=== PATIENT | female | born 1990 | race Caucasian/White ===

== ENCOUNTER 2018-07-07 12:28 | Inpatient (IN) | payer BC ==
[2018-07-07] MEDS ORDERED: Lactated Ringers 1000 ML Bag* 1,000 ML IV ONE ×2 (15:37→17:15)
[2018-07-07] MEDS ORDERED: Buffered Lidocaine 1% SYRIN* 1 ML/SYRINGE INTRADERM ONE (15:37)
[2018-07-07] MEDS ORDERED: Penicillin G Potassium IV* 5,000,000 UNITS in NS 0.9% 100 ML* 100 ML IVPB ONE (15:37)
[2018-07-07] MEDS ORDERED: Lactated Ringers 1000 ML Bag* 1,000 ML IV SCH ×2 (16:00→18:00)
[2018-07-07 16:16] LABS: ABS Basophils 0 10^3/ul (0-0.2); ABS Eosinophils 0 10^3/ul (0-0.6); ABS Monocytes 0.6 10^3/ul (0-0.8); ABS Neutrophils 7.8 10^3/ul (1.5-7.7); ABS Nucleated RBC 0 10^3/ul; Eosinophil % 0.3 %; Hematocrit 36 % (35-47); Hemoglobin 12.8 g/dl (12.0-16.0); Lymphocyte % 10.9 %; Mean Corpuscular HGB Conc 35 g/dl (31-36); Mean Corpuscular Hemoglobin 34 pg (27-31); Mean Corpuscular Volume 95 fL (80-97); Mean Platelet Volume 9.3 fL (7.4-10.4); Nucleated Red Blood Cells % 0; Platelet Count 166 10^3/ul (150-450); Red Blood Count 3.81 10^6/ul (4.00-5.40); Red Cell Distribution Width 13 % (10.5-15); White Blood Count 9.4 10^3/ul (3.5-10.8)
[2018-07-07] MEDS ORDERED: OBEPIDURAL* 250 ML EPIDURAL ONE (16:45)
--- NOTE | 2018-07-07 16:58 | HP ---
General Information - General Information Maternal Age: 28 Grav: 1 Para: 0 SAB: 0 IEA: 0 Estimated Due Date: 07/09/18 Determined By: LMP Maternal Blood Type and Rh: A Positive - Results this Serology/RPR Result: Non-Reactive Rubella Result: Non-Immune HBsAg Result: Negative HIV Result: Negative GBS Culture Result: Positive Past Medical History Delivery History: See Records - primigravida Pertinent Past Medical History: Non-Contributory Pertinent Past Surgical History: None Pertinent Family History: Non-Contributory - Antepartal Records Antepartal Records: Reviewed, Complicated by: - Rubella equivocal x2 Review of Systems Constitutional: Uncomfortable CV Complaint: No Respiratory: Shortness of Breath: No Gastrointestinal: Normal Bowel Movement, Nausea Genitourinary: No Dysuria, No Bleeding, No Leaking Fluid Musculoskeletal: No Epigastric Pain, Contractions Neurological: No Headache, No Visual Changes Movement: Normal Exam Allergies/Adverse Reactions: Allergies No Known Allergies Allergy (Verified 07/07/18 13:03) T-98.2, P-70, R-20, BP-106/67, O2-98% Lab Values - Entire Visit: Laboratory Tests 07/07/18 07/07/18 15:53 15:53 WBC 9.4 RBC 3.81 L Hgb 12.8 Hct 36 MCV 95 MCH 34 H MCHC 35 RDW 13 Plt Count 166 MPV 9.3 Neut % (Auto) 82.6 Lymph % (Auto) 10.9 Rush % (Auto) 6.0 Eos % (Auto) 0.3 Baso % (Auto) 0.2 Absolute Neuts (auto) 7.8 H Absolute Lymphs (auto) 1.0 Absolute Monos (auto) 0.6 Absolute Eos (auto) 0 Absolute Basos (auto) 0 Absolute Nucleated RBC 0 Nucleated RBC % 0 Blood Type A Positive - Measurements Height: 5 ft 5 in Weight: 66.678 kg Weight in lbs: 147.932870 Body Mass Index (BMI): 24.4 Pre- Weight: 53.977 kg Weight Gained This : 28 lbs and 0 ozs - Exam Breast: Breast Exam Deferred CVA: No CVA Tenderness Extremities: No Edema Heart: Normal Rhythm/Heart Sounds HEENT: No Significant Findings Lungs: Clear Bilaterally Rectal: Rectal Exam Deferred Reflexes: DTR 2+ Thyroid: No Thyromegaly - Abdominal Exam Abdomen Exam: Non-Tender, Fundal Height Consistent with Dates - Ultrasound/Biophysical Profile Ultrasound Status: Not Done Targeted Exam Findings See L&D Outpatient Visit Provider Note for Findings: N/A Estimated Weight: 7# Cervical Exam: 3cm - 3-4 cm last check, was 2-3 cm on arrival Effacement: 60% Station: -1 Presenting Part: Vertex Membrane Status: Intact Bleeding/Discharge: Bloody Show EFM Findings - External Monitor Findings Baseline Heart Rate: 145 External Monitor Findings: Accelerations Present, No Pattern of Variable or Late Decelerations, Variability Moderate, Baseline Stable Contractions: Irregular, Mild, Moderate, 45-90 Seconds, >90 Seconds Contraction Frequency: 5-15 minutes Assessment/Plan - Assessment 28 year old at 39 5/7 weeks gestation in early labor, making cervical change, GBS positive, with no evidence of acidemia. At the time of this writing, pt's ctx frequency have increased to every 5 minutes and she is requesting an epidural. Dr. Dang at bedside, placing epidural. - Obstetrical Risk Factors Obstetrical Risk Factors: GBS Positive - Plan Plan: Antibiotic Prophylaxis, Admit - Anticipate Vaginal Delivery - Date/Time of Admission Date of Admission: 07/07/18 Time of Admission: 16:00
[2018-07-07] MEDS ORDERED: Famotidine TAB* 20 MG PO PRN (17:15)
[2018-07-07] MEDS ORDERED: Sodium Citrate/Citric Acid* 15 ML UDC PO PRN (17:15)
[2018-07-07] MEDS ORDERED: Phenylephrine IV* 40 MCG/ML 10 ML SYRINGE IV PUSH PRN ×2 (17:15)
[2018-07-07] MEDS ORDERED: EPHEDrine (Pressors)* 50 MG/ML VIAL IV PUSH PRN ×2 (17:15)
[2018-07-07] MEDS ORDERED: Oxytocin in LR* 20 UNITS/1,000 ML BAG IVPB SCH (18:00)
[2018-07-07] MEDS ORDERED: OBEPIDURAL* 250 ML EPIDURAL SCH (18:00)
--- NOTE | 2018-07-07 18:13 | PN ---
Progress Note - Progress Note Date of Service: 07/07/18 SOAP: Subjective: Pt comfortable wth epidural. Feels mild tightening with ctx. Objective: FHR 135 baseline, moderate variability, positive accels, no decels UCs 3-8 minutes Cervix: 4cm/ 70%/ 0 station/ vtx/ membranes intact Vital signs: 113/65, 70p, temp-98.2 Assessment: 28 year old at 39 5/7 weeks gestation in active labor, GBS positive receiving prophylaxis, comfortable with epidural, no evidence of acidemia. Plan: Initiate Pitocin augmentation if ctx continue to be irregular/ spaced out. Will consider AROM at some point.
[2018-07-07] MEDS: Penicillin G Potassium IV* 2,500,000 UNITS in NS 0.9% 100 ML* 100 ML IVPB SCH ×2 (19:50→23:59)
--- NOTE | 2018-07-07 22:04 | PN ---
Progress Note - Progress Note Date of Service: 07/07/18 SOAP: Subjective: Pt remains comfortable with epidural. Aware of ctx but only feels them as mild pressure. Objective: Cervical exam 7cm/ 100%/ 0 station/ vtx/ bulging bag AROM performed with pt consent to clear fluid with bloody show. FHR 145 baseline, moderate variability, after AROM, experiencing variable decels with some ctx, with good recovery to baseline UCs 2-3 minutes prior to stopping Pitocin, now 3-5 minutes Assessment: 28 year old at 39 5/7 weeks gestation in active, labor, comfortable with epidural, experiencing variable decelerations, resolving with position change. GBS positive, has had 2 doses of PCN at this point. Plan: Pitocin stopped and pt repositioned. Variable decelerations appear to be resolving. Will consider restarting Pitocin if ctx space out. Anticipate .
--- NOTE | 2018-07-07 23:36 | PN ---
Progress Note - Progress Note Date of Service: 07/07/18 SOAP: Subjective: Pt still comfortable with ctx, currently on right side. Objective: FHR 135, moderate variability, + accels, occasional variable and early decels UCs 2-5 minutes Pitocin off Cervical exam deferred BP- 117/65 Assessment: 28 year old at 39 5/7 weeks gestation in active labor with ruptured membranes, GBS positive, clear fluid, no evidence of acidemia. Plan: Anticipate . Will restart Pitocin if ctx space out.
[2018-07-08] MEDS ORDERED: Glycerin ADULT SUPP PR PRN (02:25)
[2018-07-08] MEDS ORDERED: Dibucaine 1% 28.35 GM TUBE PR PRN (02:25)
[2018-07-08] MEDS ORDERED: Acetaminophen TAB* 325 MG PO PRN (02:25)
[2018-07-08] MEDS ORDERED: Measles, Mumps,Rubella VACC* 0.5 ML/VIAL SUBCUT ONE (02:25)
[2018-07-08] MEDS ORDERED: Witch Hazel PAD* JAR TOPICAL PRN (02:25)
[2018-07-08] MEDS ORDERED: Lactated Ringers 1000 ML Bag* 1,000 ML IV SCH (03:00)
[2018-07-08] MEDS ORDERED: Oxytocin in LR* 20 UNITS/1,000 ML BAG IVPB SCH (03:00)
--- NOTE | 2018-07-08 16:30 | PROCNOTE ---
[facility] OB: Delivery Note - Delivery A Date of : 07/08/18 Time of : 01:36 Terrell Sex: Female Weight at : 2.907 kg Score 1 Minute: 10 Score 5 Minutes: 10 Gestational Age in Weeks and Days at Delivery: 39 Weeks and 6 Days Delivery Method: Spontaneous Vaginal Labor: Spontaneous Did Patient attempt ?: N/A, No Previous Amniotic Fluid: Clear Estimated Blood Loss: 300 Anesthesia/Analgesia: CEI for Labor Delivered By: Michelle Edouard - Placenta/ repair by Tesha Garcia CNM - Nursery Level of Nursery: Regular/Bedside - Perineum Perineal Injury: 2nd Degree Perineal Repair: By Delivering Practioner - by Tesha Garcia CNM - Events Delivery Events of Note: Pitocin During Labor, Full Course of Antibiotics 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 She made steady progress in dilation and as labor became more active, requested and received a labor epidural with good pain relief. After receiving the epidural, pt's contractions spaced out, so Pitocin was started to augment labor, highest dosage 4 mu/ min. Pt continued to make steady progress. At 7cm AROM performed with pt's consent to clear fluid. Pitocin stopped after FHR exhibited variable decelerations, which resolved with repositioning, IV fluids. Pt continued to make good progress. Pt reported increased pressure and urge to push, at which time she was found to be fully dilated. Pt pushed with good effort. At that time, another pt was at similar stage of pushing, so Dr. Enrique called in to unit. However, delivered quickly before Dr. Enrique or myself was able to be present at the bedside, caught by Caprice Edouard RN. Per RN, was crying even as head was delivering, and scores were 10/10. I came to bedside to complete delivery. was skin to skin with mother, cord clamped and cut. Placenta soon delivered, eagle side with trailing membranes, teased out with Linda clamps. Perineum examined and found to have small second degree laceration. Laceration repaired with 3-0 Rapide suture resulting in good tissue approximation and hemostasis. breastfed soon after . Infant and mother stable at this time, anticipate normal course.
[2018-07-08] MEDS: Docusate CAP* 100 MG PO SCH (20:03)
[2018-07-09] MEDS: Ibuprofen TAB* 600 MG PO PRN (00:50)
[2018-07-09] MEDS: Docusate CAP* 100 MG PO SCH ×4 (00:53→22:43)
[2018-07-09] MEDS: Penicillin G Potassium IV* 2,500,000 UNITS in NS 0.9% 100 ML* 100 ML IVPB SCH (00:54)
[2018-07-09 07:42] LABS: ABS Basophils 0 10^3/ul (0-0.2); ABS Eosinophils 0 10^3/ul (0-0.6); ABS Lymphocytes 1.3 10^3/ul (1.0-4.8); ABS Monocytes 0.4 10^3/ul (0-0.8); ABS Neutrophils 6.5 10^3/ul (1.5-7.7); ABS Nucleated RBC 0 10^3/ul; Eosinophil % 0.5 %; Hematocrit 34 % (35-47); Hemoglobin 11.7 g/dl (12.0-16.0); Lymphocyte % 16.1 %; Mean Corpuscular HGB Conc 35 g/dl (31-36); Mean Corpuscular Hemoglobin 33 pg (27-31); Mean Corpuscular Volume 96 fL (80-97); Mean Platelet Volume 9.6 fL (7.4-10.4); Nucleated Red Blood Cells % 0; Platelet Count 140 10^3/ul (150-450); Red Blood Count 3.54 10^6/ul (4.00-5.40); Red Cell Distribution Width 14 % (10.5-15); White Blood Count 8.3 10^3/ul (3.5-10.8)
[2018-07-09] MEDS ORDERED: Ferrous Gluconate TAB* 324 MG TAB PO SCH (09:00)
[2018-07-10 07:29] VITALS: BP 96/63
[2018-07-10] MEDS: Ibuprofen TAB* 600 MG PO PRN (07:38)
[2018-07-10] MEDS: Docusate CAP* 100 MG PO SCH (07:38)
== END 2018-07-10 11:56 | disposition home or self-care (01) | DRG 560 ==
LOC: MCHOBOUT 12:28 → MCHOB 15:38
PROVIDERS: ADMIT Midwife; ATTEND Midwife
PROC: 10E0XZZ Delivery of Products of Conception, External Approach (ICD-10-PCS; principal; 2018-07-08)
PROC: 10907ZC Drainage of Amniotic Fluid, Therapeutic from Products of Conception, Via Natural or Artificial Opening (ICD-10-PCS; 2018-07-08)
PROC: 0KQM0ZZ Repair Perineum Muscle, Open Approach (ICD-10-PCS; 2018-07-08)
DX: O99.824 Streptococcus B carrier state complicating childbirth (principal); Z37.0 Single live birth; O70.1 Second degree perineal laceration during delivery; Z3A.39 39 weeks gestation of pregnancy
CPT/HCPCS: 36415; 85025; 86850; 86900; 86901; A9270-GY; J2540